=== PATIENT | female | born 1990 | race Caucasian/White ===

== ENCOUNTER 2020-12-25 22:31 | Emergency (ER) | payer OTHER ==
[~2020-12-25] VITALS: Ht 162.6 cm; Wt 86.2 kg
[~2020-12-25 22:31] MED LIST: CLONAZEPAM1 MG; NEURONTIN600 MG; ULTRAM50 MG
[2020-12-25] MEDS ORDERED: CLONAZEPAM0.5 MG PO (23:01)
[2020-12-25] MEDS ORDERED: TRINTELLIX20 MG PO (23:01)
[2020-12-25] MEDS ORDERED: LATUDA40 MG PO (23:01)
[2020-12-25] MEDS ORDERED: LAMICTAL100 MG PO (23:01)
[2020-12-25] MEDS ORDERED: LAMICTAL200 MG PO (23:02)
[2020-12-26] MEDS ORDERED: XOPENEX0.63 MG/3 IH (02:16)
[2020-12-26] MEDS ORDERED: ZYRTEC10 MG PO (02:16)
[2020-12-26] MEDS ORDERED: KETO10TA2 PO (02:16)
[2020-12-26] MEDS ORDERED: MUCINEX DM ER1 EAC1 PO (02:16)
== END 2020-12-26 02:20 | disposition home or self-care (01) ==
LOC: ER 22:31
DX: N93.8 Other specified abnormal uterine and vaginal bleeding (principal); R10.2 Pelvic and perineal pain; J06.9 Acute upper respiratory infection, unspecified; R50.9 Fever, unspecified